=== PATIENT | female | born 1945 | race Caucasian/White ===

== ENCOUNTER 2019-01-08 09:57 | Emergency (ER) | payer MEDICARE ==
[~2019-01-08] VITALS: Ht 170.2 cm; Wt 83.0 kg
[2019-01-08] MEDS ORDERED: ATOR80TA PO (10:11)
[2019-01-08] MEDS ORDERED: CLOP75TA15 PO (10:11)
--- NOTE | 2019-01-08 10:16 | NUR ---
PT IS IN ROOM #2A. DR LANGE EVALUATED THE PT.
[2019-01-08] MEDS ORDERED: IV NORMAL SALINE 250 ML IV ONE (10:27)
[2019-01-08] MEDS ORDERED: SWABABLE VALVE TRANSFER SET EA MC ONE (10:27)
[2019-01-08] MEDS ORDERED: IOHEXOL 350 100 ML INFUS..BTL ONE ×2 (10:27→10:34)
[2019-01-08] MEDS ORDERED: PROCHLORPERAZINE EDISYLATE 10 MG/2 ML VIAL IV ONE (10:30)
[2019-01-08 10:36] LABS: BASOPHILS # (AUTO) 0.1 K/uL (0.0-8.0); BASOPHILS % (AUTO) 0.9 % (0.0-2.0); EOSINOPHILS # (AUTO) 0.4 K/uL (0.0-0.7); EOSINOPHILS % (AUTO) 3.7 % (0.0-7.0); HEMATOCRIT 38.3 % (31.2-41.9); LYMPHOCYTES # (AUTO) 2.4 K/uL (20.0-40.0); LYMPHOCYTES % (AUTO) 24.1 % (20.5-51.5); MEAN CORPUSCULAR HEMOGLOBIN 30.5 uug (24.7-32.8); MEAN CORPUSCULAR HGB CONC 34 g/dL (32.3-35.6); MONOCYTES # (AUTO) 0.9 K/uL (2.0-10.0); NEUTROPHILS # (AUTO) 6.2 K/uL (1.8-8.9); NEUTROPHILS % (AUTO) 62.3 % (38.5-71.5); PLATELET COUNT (AUTO) 293 K/uL (179-408); RED BLOOD CELL COUNT(AUTO) 4.26 MIL/uL (3.63-4.92); WHITE BLOOD COUNT (AUTO) 9.9 K/uL (3.8-11.8)
[2019-01-08] MEDS ORDERED: PROCHLORPERAZINE EDISYLATE 10 MG/2 ML VIAL ONE (10:39)
[2019-01-08 10:42] LABS: CARBON DIOXIDE 27 mmol/L (21-32); CHLORIDE 109 mmol/L (98-107); CREATININE 0.9 mg/dL (0.6-1.3); GLUCOSE 99 mg/dL (74-106); POTASSIUM 4.8 mmol/L (3.5-5.1); UREA NITROGEN, BLOOD 13 mg/dL (7-18)
[2019-01-08] MEDS ORDERED: MECLIZINE HCL 25 MG TABLET PO ONE (11:45)
[2019-01-08] MEDS ORDERED: MECLIZINE HCL 25 MG TABLET ONE (11:46)
--- NOTE | 2019-01-08 12:34 | NUR ---
Chelsea manuel in ED - 01/08/19 at 1508 by CARMELO PT's INFORMATION WAS FAXED TO PT's INSURANCE COMPANY. PT DOES NOT WANT TO BE TRANSFERED TO [facility]. DR LANGE NOTIFIED.
--- NOTE | 2019-01-08 13:07 | NUR ---
TEXTED DR. GUADARRAMA FOR MRI BRAIN APPROVAL.
--- NOTE | 2019-01-08 15:46 | NUR ---
PT WENT TO MRI IN [facility] ACCORDING TO DR ANISA LEOS. NO S/S OF ACUTE DISTESS AT THE TIME OF TRANSFER.
--- NOTE | 2019-01-08 16:54 | NUR ---
PT CAME BACK AFTER MRI EXAM IN [facility]. PT TOLERATED TO PROCEDURE WITHOUT COMPLICATIONS. NO S/S OF ACUTE DISTRESS AT THIS TIME.
--- NOTE | 2019-01-08 17:56 | NUR ---
PT WAS D/C'D TO HOME AFTER DR LANGE EVALUATION. D/C INSTRUCTIONS GIVEN TO THE PT. GAIT IS STABLE. PT DENIES DIZZINESS.
[2019-01-08 17:58] VITALS: BP 134/71
== END 2019-01-08 17:59 | disposition home or self-care (01) ==
LOC: ER 10:00
DX: R42 Dizziness and giddiness (principal); R05 Cough; Z79.01 Long term (current) use of anticoagulants; Z79.899 Other long term (current) drug therapy; Z86.73 Personal history of transient ischemic attack (TIA), and cerebral infarction without residual deficits
CPT/HCPCS: 36415; 70450; 70496; 70498; 70551; 80048; 85025; 93005; 96374; 99284; J0780; Q9967 ×2; A4663; C1758; J7030; J7050; J8597

== ENCOUNTER 2024-09-07 15:35 | Inpatient (IN) | payer MEDICARE ==
[~2024-09-07] VITALS: Ht 170.2 cm; Wt 77.1 kg
[~2024-09-07 15:35] MED LIST: ATOR80TA PO; CLOP75TA15 PO
[2024-09-07 16:08] LABS: BASOPHILS # (AUTO) 0.1 K/UL (0.0-0.2); MONOCYTES # (AUTO) 0.8 K/uL (0.1-1.30); MONOCYTES % (AUTO) 6.5 % (0.0-11.0)
[2024-09-07 16:10] LABS: BASOPHILS % (AUTO) 0.5 % (0.0-2.0); EOSINOPHILS % (AUTO) 0.3 % (0.0-7.0); LYMPHOCYTES % (AUTO) 8.5 % (20.5-51.5); MEAN CORPUSCULAR HEMOGLOBIN 30.8 uug (24.7-32.8); MEAN CORPUSCULAR HGB CONC 32 g/dL (32.3-35.6); MEAN CORPUSCULAR VOLUME 97.3 fL (75.5-95.3); NEUTROPHILS % (AUTO) 84.2 % (38.5-71.5); PLATELET COUNT (AUTO) 169 K/uL (179-408); RED CELL DISTRIBUTION WIDTH 17.4 % (12.3-17.7); WHITE BLOOD COUNT (AUTO) 11.9 K/uL (3.8-11.8)
[2024-09-07 16:13] LABS: CALCIUM 7.6 mg/dL (8.5-10.1); CARBON DIOXIDE 19 mmol/L (21-32); CHLORIDE 105 mmol/L (98-107); CREATININE 1.5 mg/dL (0.6-1.3); GLUCOSE 64 mg/dL (74-106); POTASSIUM 3.6 mmol/L (3.5-5.1); SODIUM SERUM 137 mmol/L (136-145); UREA NITROGEN, BLOOD 19 mg/dL (7-18)
[2024-09-07 16:19] LABS: DIFFERENTIAL COMMENT 1; RED BLOOD CELL COUNT(AUTO) 2.04 MIL/uL (3.63-4.92)
[2024-09-07 16:20] LABS: HEMATOCRIT 19.8 % (31.2-41.9); HEMOGLOBIN 6.3 g/dL (10.9-14.3)
[2024-09-07 16:26] LABS: ALANINE AMINOTRANSFERASE 26 U/L (14-59); ALKALINE PHOSPHATASE 326 U/L (50-136); ASPARTATE AMINOTRANSFERASE 23 U/L (15-37); BILIRUBIN,DIRECT 0.7 mg/dL (0.0-0.2); BILIRUBIN,TOTAL 1.5 mg/dL (0.2-1.0); TOTAL PROTEIN, SERUM 4.9 g/dL (6.4-8.2)
[2024-09-07 16:30] LABS: ALBUMIN 1.4 g/dL (3.4-5.0)
[2024-09-07 16:54] LABS: NT-PRO BNP 52207 pg/mL (0-125)
[2024-09-07] MEDS: IV NS 1000 ML 1,000 ML IV ONE (16:59)
[2024-09-07 17:25] LABS: LYMPHOCYTES % (MANUAL) 5 % (20-40); MONOCYTES % (MANUAL) 2 % (2-10); NEUTROPHILS % (MANUAL) 93 % (42-75)
[2024-09-07 17:26] LABS: ANISOCYTOSIS 1+; HYPOCHROMASIA 2+; PLATELET ESTIMATE ADEQUATE
[2024-09-07 17:28] LABS: OVALOCYTES OCC; STOMATOCYTES OCC
[2024-09-07] MEDS ORDERED: VENL225T PO (17:44)
[2024-09-07] MEDS ORDERED: PROP80TA4 PO (17:44)
[2024-09-07] MEDS ORDERED: CLON0.5T4 PO (17:44)
[2024-09-07] MEDS ORDERED: MAGNESIUM HYDROXIDE 30 ML LIQUID UDC PO PRN (18:00)
[2024-09-07] MEDS: PANTOPRAZOLE SODIUM 40 MG VIAL IV SCH (23:10)
[2024-09-07] MEDS: ATORVASTATIN 40 MG TABLET PO SCH (23:10)
[2024-09-07] MEDS: IV NS 1000 ML 1,000 ML IV PRN (23:11)
[2024-09-07 23:56] VITALS: BP 108/86; TEMP 97.7; O2SAT 95
[2024-09-08] VITALS (7 sets, daily range): BP systolic 101–127; BP diastolic 66–98; TEMP 97.6–98; O2SAT 94–100
[2024-09-08] MEDS: ACETAMINOPHEN 325 MG TABLET PO PRN (03:12)
[2024-09-08 06:12] LABS: BASOPHILS # (AUTO) 0.1 K/UL (0.0-0.2); BASOPHILS % (AUTO) 0.5 % (0.0-2.0); EOSINOPHILS # (AUTO) 0.1 K/uL (0.0-0.7); EOSINOPHILS % (AUTO) 0.8 % (0.0-7.0); HEMATOCRIT 23.9 % (31.2-41.9); HEMOGLOBIN 7.8 g/dL (10.9-14.3); LYMPHOCYTES # (AUTO) 1.6 K/uL (0.8-4.8); LYMPHOCYTES % (AUTO) 10.5 % (20.5-51.5); MEAN CORPUSCULAR HEMOGLOBIN 31.8 uug (24.7-32.8); MEAN CORPUSCULAR HGB CONC 33 g/dL (32.3-35.6); MEAN CORPUSCULAR VOLUME 97.8 fL (75.5-95.3); MONOCYTES # (AUTO) 1.3 K/uL (0.1-1.30); MONOCYTES % (AUTO) 8.6 % (0.0-11.0); NEUTROPHILS # (AUTO) 12.3 K/uL (1.8-8.9); NEUTROPHILS % (AUTO) 79.6 % (38.5-71.5); PLATELET COUNT (AUTO) 169 K/uL (179-408); RED CELL DISTRIBUTION WIDTH 17.2 % (12.3-17.7); WHITE BLOOD COUNT (AUTO) 15.5 K/uL (3.8-11.8)
[2024-09-08 06:15] LABS: DIFFERENTIAL COMMENT 1; RED BLOOD CELL COUNT(AUTO) 2.45 MIL/uL (3.63-4.92)
[2024-09-08 06:25] LABS: ALANINE AMINOTRANSFERASE 32 U/L (14-59); ALKALINE PHOSPHATASE 317 U/L (50-136); ASPARTATE AMINOTRANSFERASE 25 U/L (15-37); CALCIUM 7.4 mg/dL (8.5-10.1); CARBON DIOXIDE 21 mmol/L (21-32); CHLORIDE 104 mmol/L (98-107); CREATININE 1.5 mg/dL (0.6-1.3); GLUCOSE 69 mg/dL (74-106); MAGNESIUM 1.6 mg/dL (1.8-2.4); PHOSPHOROUS 3.3 mg/dL (2.5-4.9); POTASSIUM 3.6 mmol/L (3.5-5.1); SODIUM SERUM 136 mmol/L (136-145); TOTAL PROTEIN, SERUM 5.1 g/dL (6.4-8.2); UREA NITROGEN, BLOOD 21 mg/dL (7-18)
[2024-09-08 06:44] LABS: ALBUMIN 1.4 g/dL (3.4-5.0)
[2024-09-08] MEDS: VENLAFAXINE XR 75 MG TAB.ER.24H PO SCH (08:27)
[2024-09-08] MEDS: PROPRANOLOL HCL 40 MG TABLET PO SCH (08:28)
[2024-09-08] MEDS: ALBUMIN HUMAN 25% 50 ML IV ONE (09:52)
[2024-09-08] MEDS: MAGNESIUM OXIDE 400 MG TABLET PO ONE (12:39)
[2024-09-08] MEDS: CEFTRIAXONE 1 G in IV DEXTROSE 5% 50 ML IV SCH (14:35)
[2024-09-08] MEDS ORDERED: DOXY100T2 PO (15:43)
[2024-09-08] MEDS ORDERED: BUSP5TAB3 PO (15:44)
[2024-09-08] MEDS ORDERED: SUCR1ORA PO (15:47)
[2024-09-08] MEDS ORDERED: FLUT16SP BNOSTRILS (15:49)
[2024-09-08] MEDS ORDERED: PANT40TA49 PO (15:51)
[2024-09-08] MEDS ORDERED: FOLI1TAB27 PO (15:51)
[2024-09-08] MEDS ORDERED: FERR325T24 PO (15:52)
[2024-09-08] MEDS ORDERED: POTA-10 PO (15:53)
[2024-09-08] MEDS: ONDANSETRON 4 MG/2 ML VIAL IV PRN (15:54)
[2024-09-08] MEDS ORDERED: ACET325T53 PO (16:00)
[2024-09-08] MEDS: REMEDY ESSENTIAL ZINC PASTE 113 GM TP PRN (16:39)
[2024-09-09] VITALS (8 sets, daily range): BP systolic 97–146; BP diastolic 54–87; TEMP 97.5–98.1; O2SAT 94–97
[2024-09-09 02:07] LABS: *OCCULT BLOOD STOOL POSITIVE (NEGATIVE)
[2024-09-09 04:14] LABS: *BILIRUBIN,URIN NEGATIVE (NEGATIVE); *CLARITY,URINE CLEAR (CLEAR); *COLOR,URINE Orange (YELLOW); *KETONES,URINE NEGATIVE (NEGATIVE); *PROTEIN,URINE 1+ (NEGATIVE); *UROBILINOGEN,URINE 0.2 E.U./dl (NORMAL); LEUKOCYTE ESTERASE ,URINE 1+ (NEGATIVE); NITRITE, URINE POSITIVE (NEGATIVE); PH,URINE 5.5 (5.0-8.0); UGLUCOSE NEGATIVE (NEGATIVE)
[2024-09-09 04:36] LABS: *BLOOD, URINE TRACE (NEGATIVE)
[2024-09-09 04:44] LABS: BACTERIA,URINE MODERATE /HPF (NONE SEEN); SQUAMOUS EPITHELIAL CELL,UR MODERATE /HPF (NONE SEEN)
[2024-09-09 04:46] LABS: YEAST,URINE FEW /HPF (NONE SEEN)
[2024-09-09 06:49] LABS: BASOPHILS # (AUTO) 0.1 K/UL (0.0-0.2); BASOPHILS % (AUTO) 0.4 % (0.0-2.0); EOSINOPHILS # (AUTO) 0.1 K/uL (0.0-0.7); EOSINOPHILS % (AUTO) 0.4 % (0.0-7.0); HEMATOCRIT 23.4 % (31.2-41.9); HEMOGLOBIN 7.8 g/dL (10.9-14.3); LYMPHOCYTES # (AUTO) 0.7 K/uL (0.8-4.8); LYMPHOCYTES % (AUTO) 3.8 % (20.5-51.5); MEAN CORPUSCULAR HEMOGLOBIN 32.3 uug (24.7-32.8); MEAN CORPUSCULAR HGB CONC 34 g/dL (32.3-35.6); MEAN CORPUSCULAR VOLUME 96.4 fL (75.5-95.3); MONOCYTES # (AUTO) 0.6 K/uL (0.1-1.30); MONOCYTES % (AUTO) 3.3 % (0.0-11.0); NEUTROPHILS # (AUTO) 16.7 K/uL (1.8-8.9); NEUTROPHILS % (AUTO) 92.1 % (38.5-71.5); PLATELET COUNT (AUTO) 174 K/uL (179-408); RED CELL DISTRIBUTION WIDTH 17.4 % (12.3-17.7); WHITE BLOOD COUNT (AUTO) 18.2 K/uL (3.8-11.8)
[2024-09-09 07:05] LABS: DIFFERENTIAL COMMENT 1; RED BLOOD CELL COUNT(AUTO) 2.42 MIL/uL (3.63-4.92)
[2024-09-09 07:05] LABS: CARBON DIOXIDE 23 mmol/L (21-32); CHLORIDE 106 mmol/L (98-107); CREATININE 1.2 mg/dL (0.6-1.3); GLUCOSE 84 mg/dL (74-106); MAGNESIUM 1.6 mg/dL (1.8-2.4); POTASSIUM 3.3 mmol/L (3.5-5.1); SODIUM SERUM 139 mmol/L (136-145); UREA NITROGEN, BLOOD 17 mg/dL (7-18)
[2024-09-09] MEDS ORDERED: SUCRALFATE 1 G/10 ML LIQUID UDC GT SCH (07:30)
[2024-09-09] MEDS: FOLIC ACID 1 MG TABLET PO SCH (08:14)
[2024-09-09] MEDS: busPIRone 5 MG TABLET PO SCH (08:14)
[2024-09-09] MEDS: SUCRALFATE 1 G TABLET PO SCH (08:14)
[2024-09-09] MEDS: FERROUS SULFATE 325 MG TABEC PO SCH (08:15)
[2024-09-09] MEDS: POTASSIUM CHLORIDE 20 MEQ TAB.PRT.SR PO ONE (11:05)
[2024-09-09] MEDS: MAGNESIUM OXIDE 400 MG TABLET PO ONE (11:05)
[2024-09-09] MEDS ORDERED: PROPOFOL 200 MG/20 ML BOTTLE ONE (15:30)
[2024-09-09] MEDS: PANTOPRAZOLE SODIUM 40 MG TABLET.DR PO SCH (16:10)
[2024-09-09] MEDS ORDERED: SUCRALFATE 1 G/10 ML LIQUID UDC PO SCH (16:30)
[2024-09-10] VITALS (9 sets, daily range): BP systolic 91–148; BP diastolic 54–68; TEMP 97.6–98.4; O2SAT 94–100
[2024-09-10 13:17] LABS: BASOPHILS # (AUTO) 0.1 K/UL (0.0-0.2); BASOPHILS % (AUTO) 0.3 % (0.0-2.0); EOSINOPHILS # (AUTO) 0.1 K/uL (0.0-0.7); EOSINOPHILS % (AUTO) 0.7 % (0.0-7.0); HEMATOCRIT 23.5 % (31.2-41.9); HEMOGLOBIN 7.6 g/dL (10.9-14.3); LYMPHOCYTES # (AUTO) 0.9 K/uL (0.8-4.8); LYMPHOCYTES % (AUTO) 5.2 % (20.5-51.5); MEAN CORPUSCULAR HEMOGLOBIN 31.8 uug (24.7-32.8); MEAN CORPUSCULAR HGB CONC 32 g/dL (32.3-35.6); MEAN CORPUSCULAR VOLUME 98.3 fL (75.5-95.3); MONOCYTES # (AUTO) 0.8 K/uL (0.1-1.30); MONOCYTES % (AUTO) 4.5 % (0.0-11.0); NEUTROPHILS # (AUTO) 15.9 K/uL (1.8-8.9); NEUTROPHILS % (AUTO) 89.3 % (38.5-71.5); PLATELET COUNT (AUTO) 166 K/uL (179-408); RED CELL DISTRIBUTION WIDTH 17.2 % (12.3-17.7); WHITE BLOOD COUNT (AUTO) 17.8 K/uL (3.8-11.8)
[2024-09-10 13:19] LABS: DIFFERENTIAL COMMENT 1; RED BLOOD CELL COUNT(AUTO) 2.39 MIL/uL (3.63-4.92)
[2024-09-10 13:43] LABS: CALCIUM 7.2 mg/dL (8.5-10.1); CARBON DIOXIDE 23 mmol/L (21-32); CHLORIDE 108 mmol/L (98-107); CREATININE 1.3 mg/dL (0.6-1.3); GLUCOSE 84 mg/dL (74-106); MAGNESIUM 1.7 mg/dL (1.8-2.4); PHOSPHOROUS 2.1 mg/dL (2.5-4.9); POTASSIUM 4.2 mmol/L (3.5-5.1); SODIUM SERUM 139 mmol/L (136-145); UREA NITROGEN, BLOOD 18 mg/dL (7-18)
[2024-09-10] MEDS: NEUTRA PHOS PACKET PO ONE (16:00)
[2024-09-10] MEDS: MELATONIN 3 MG TABLET PO SCH (21:34)
[2024-09-11] VITALS (8 sets, daily range): BP systolic 105–143; BP diastolic 45–70; TEMP 97.6–97.9; O2SAT 94–97
[2024-09-11 06:53] LABS: BASOPHILS # (AUTO) 0.1 K/UL (0.0-0.2); BASOPHILS % (AUTO) 0.7 % (0.0-2.0); EOSINOPHILS # (AUTO) 0.3 K/uL (0.0-0.7); EOSINOPHILS % (AUTO) 2.2 % (0.0-7.0); HEMATOCRIT 22.3 % (31.2-41.9); LYMPHOCYTES # (AUTO) 0.8 K/uL (0.8-4.8); LYMPHOCYTES % (AUTO) 5.8 % (20.5-51.5); MEAN CORPUSCULAR HEMOGLOBIN 31.9 uug (24.7-32.8); MEAN CORPUSCULAR HGB CONC 33 g/dL (32.3-35.6); MEAN CORPUSCULAR VOLUME 96.7 fL (75.5-95.3); MONOCYTES # (AUTO) 0.7 K/uL (0.1-1.30); NEUTROPHILS # (AUTO) 12.4 K/uL (1.8-8.9); NEUTROPHILS % (AUTO) 86.3 % (38.5-71.5); PLATELET COUNT (AUTO) 168 K/uL (179-408); RED CELL DISTRIBUTION WIDTH 17.3 % (12.3-17.7); WHITE BLOOD COUNT (AUTO) 14.3 K/uL (3.8-11.8)
[2024-09-11 07:02] LABS: DIFFERENTIAL COMMENT 1; HEMOGLOBIN 7.3 g/dL (10.9-14.3); RED BLOOD CELL COUNT(AUTO) 2.31 MIL/uL (3.63-4.92)
[2024-09-11 07:12] LABS: CALCIUM 7.2 mg/dL (8.5-10.1); CARBON DIOXIDE 24 mmol/L (21-32); CHLORIDE 109 mmol/L (98-107); CREATININE 1.1 mg/dL (0.6-1.3); GLUCOSE 58 mg/dL (74-106); MAGNESIUM 1.7 mg/dL (1.8-2.4); PHOSPHOROUS 2.2 mg/dL (2.5-4.9); POTASSIUM 3.7 mmol/L (3.5-5.1); SODIUM SERUM 140 mmol/L (136-145); UREA NITROGEN, BLOOD 17 mg/dL (7-18)
[2024-09-11] MEDS: MAGNESIUM OXIDE 400 MG TABLET PO ONE (12:24)
[2024-09-11] MEDS: LOPERAMIDE HCL 2 MG CAPSULE PO ONE (13:21)
[2024-09-11] MEDS: NEUTRA PHOS PACKET PO ONE (16:37)
[2024-09-12] VITALS (9 sets, daily range): BP systolic 119–148; BP diastolic 44–66; TEMP 97.7–98.1; O2SAT 92–97
[2024-09-12] MEDS: HYDROCODONE/APAP 5-325MG TABLET PO PRN (01:40)
[2024-09-12 07:03] LABS: CALCIUM 7.2 mg/dL (8.5-10.1); CARBON DIOXIDE 21 mmol/L (21-32); CHLORIDE 110 mmol/L (98-107); CREATININE 1.1 mg/dL (0.6-1.3); GLUCOSE 62 mg/dL (74-106); MAGNESIUM 1.7 mg/dL (1.8-2.4); PHOSPHOROUS 2.3 mg/dL (2.5-4.9); POTASSIUM 3.7 mmol/L (3.5-5.1); SODIUM SERUM 139 mmol/L (136-145); UREA NITROGEN, BLOOD 16 mg/dL (7-18)
[2024-09-12 08:13] LABS: BASOPHILS # (AUTO) 0.1 K/UL (0.0-0.2); BASOPHILS % (AUTO) 0.7 % (0.0-2.0); DIFFERENTIAL COMMENT 0; EOSINOPHILS # (AUTO) 0.3 K/uL (0.0-0.7); EOSINOPHILS % (AUTO) 2.8 % (0.0-7.0); HEMATOCRIT 24.3 % (31.2-41.9); HEMOGLOBIN 7.9 g/dL (10.9-14.3); LYMPHOCYTES # (AUTO) 0.9 K/uL (0.8-4.8); LYMPHOCYTES % (AUTO) 7.5 % (20.5-51.5); MEAN CORPUSCULAR HEMOGLOBIN 31.4 uug (24.7-32.8); MEAN CORPUSCULAR HGB CONC 32 g/dL (32.3-35.6); MONOCYTES # (AUTO) 0.8 K/uL (0.1-1.30); MONOCYTES % (AUTO) 6.6 % (0.0-11.0); NEUTROPHILS # (AUTO) 9.7 K/uL (1.8-8.9); NEUTROPHILS % (AUTO) 82.4 % (38.5-71.5); PLATELET COUNT (AUTO) 176 K/uL (179-408); RED CELL DISTRIBUTION WIDTH 17.6 % (12.3-17.7); WHITE BLOOD COUNT (AUTO) 11.8 K/uL (3.8-11.8)
[2024-09-12] MEDS: MAGNESIUM OXIDE 400 MG TABLET PO ONE (13:43)
[2024-09-12] MEDS: NEUTRA PHOS PACKET PO ONE (16:43)
[2024-09-13 06:30] VITALS: BP 118/63; TEMP 97.8; O2SAT 94
[2024-09-13 06:33] LABS: BASOPHILS # (AUTO) 0.1 K/UL (0.0-0.2); EOSINOPHILS # (AUTO) 0.2 K/uL (0.0-0.7); EOSINOPHILS % (AUTO) 1.6 % (0.0-7.0); HEMATOCRIT 24.6 % (31.2-41.9); LYMPHOCYTES # (AUTO) 0.7 K/uL (0.8-4.8); LYMPHOCYTES % (AUTO) 6.6 % (20.5-51.5); MEAN CORPUSCULAR HEMOGLOBIN 31.9 uug (24.7-32.8); MEAN CORPUSCULAR HGB CONC 33 g/dL (32.3-35.6); MEAN CORPUSCULAR VOLUME 97.6 fL (75.5-95.3); MONOCYTES # (AUTO) 0.8 K/uL (0.1-1.30); MONOCYTES % (AUTO) 7.9 % (0.0-11.0); NEUTROPHILS # (AUTO) 8.6 K/uL (1.8-8.9); NEUTROPHILS % (AUTO) 82.9 % (38.5-71.5); PLATELET COUNT (AUTO) 193 K/uL (179-408); RED BLOOD CELL COUNT(AUTO) 2.52 MIL/uL (3.63-4.92); RED CELL DISTRIBUTION WIDTH 18.5 % (12.3-17.7); WHITE BLOOD COUNT (AUTO) 10.4 K/uL (3.8-11.8)
[2024-09-13 06:45] LABS: DIFFERENTIAL COMMENT 1
[2024-09-13 06:53] LABS: CALCIUM 7.1 mg/dL (8.5-10.1); CARBON DIOXIDE 22 mmol/L (21-32); CHLORIDE 110 mmol/L (98-107); CREATININE 0.9 mg/dL (0.6-1.3); GLUCOSE 62 mg/dL (74-106); MAGNESIUM 1.7 mg/dL (1.8-2.4); PHOSPHOROUS 2.8 mg/dL (2.5-4.9); POTASSIUM 3.5 mmol/L (3.5-5.1); SODIUM SERUM 140 mmol/L (136-145); UREA NITROGEN, BLOOD 14 mg/dL (7-18)
[2024-09-13] MEDS: MAGNESIUM OXIDE 400 MG TABLET PO ONE (08:24)
[2024-09-13] MEDS: NEUTRA PHOS PACKET PO ONE (08:24)
[2024-09-13 11:46] VITALS: BP 166/72; TEMP 97.8; O2SAT 95
[2024-09-13 14:05] VITALS: O2SAT 96
== END 2024-09-13 14:43 | DRG 377 ==
LOC: ER 15:35 → TELE3 20:51 → MEDSURG3 09-12 08:30
PROVIDERS: ADMIT Nurse Practitioner Acute Care; ATTEND Nurse Practitioner Acute Care
PROC: 30233N1 Transfusion of Nonautologous Red Blood Cells into Peripheral Vein, Percutaneous Approach (ICD-10-PCS; 2024-09-07)
PROC: 05HB33Z Insertion of Infusion Device into Right Basilic Vein, Percutaneous Approach (ICD-10-PCS; 2024-09-08)
PROC: 0DB68ZX Excision of Stomach, Via Natural or Artificial Opening Endoscopic, Diagnostic (ICD-10-PCS; principal; 2024-09-09 05:30)
DX: K29.71 Gastritis, unspecified, with bleeding (principal); E43 Unspecified severe protein-calorie malnutrition; I21.A1 Myocardial infarction type 2; N17.0 Acute kidney failure with tubular necrosis; J96.01 Acute respiratory failure with hypoxia; S42.92XA Fracture of left shoulder girdle, part unspecified, initial encounter for closed fracture; S22.32XA Fracture of one rib, left side, initial encounter for closed fracture; N39.0 Urinary tract infection, site not specified; K28.4 Chronic or unspecified gastrojejunal ulcer with hemorrhage; D50.0 Iron deficiency anemia secondary to blood loss (chronic); Y92.039 Unspecified place in apartment as the place of occurrence of the external cause; T45.525A Adverse effect of antithrombotic drugs, initial encounter; D69.6 Thrombocytopenia, unspecified; Z96.653 Presence of artificial knee joint, bilateral; Z96.611 Presence of right artificial shoulder joint; E78.5 Hyperlipidemia, unspecified; Z91.81 History of falling; W06.XXXA Fall from bed, initial encounter; Y92.032 Bedroom in apartment as the place of occurrence of the external cause; R74.01 Elevation of levels of liver transaminase levels; Z79.899 Other long term (current) drug therapy; J44.9 Chronic obstructive pulmonary disease, unspecified; Z82.49 Family history of ischemic heart disease and other diseases of the circulatory system; I11.0 Hypertensive heart disease with heart failure; I50.9 Heart failure, unspecified; E88.09 Other disorders of plasma-protein metabolism, not elsewhere classified; D72.829 Elevated white blood cell count, unspecified
CPT/HCPCS: 36415; 71045; 71111; 73060; 83735; 84100; 84484; 85025; 85730; 86850; 86900; 86901; 86920; 87086; 88312-TC; 88313-TC; 93307; 97535-GO-CO; A4606; A4663; G0378; J0696; J2405; J2470; J3490; J7040; P9016; P9047